=== PATIENT | female | born 1975 | race Caucasian/White ===

== ENCOUNTER 2017-12-16 17:39 | Emergency (ER) | payer OTHER ==
[~2017-12-16] VITALS: Ht 165.1 cm; Wt 58.5 kg
[~2017-12-16 17:39] MED LIST: HYDROXYCHLOROQ200 MG; PREDNISOLONE5 MG; RELAGESIC 5001 EACH PO; SULFAMETHOXAZOL1 TA3 PO; SYNTHROID50 MCG; TOPROL XL25 MG; ULTRACET PO
[2017-12-16] MEDS ORDERED: NIFE60TA3 (17:51)
[2017-12-16] MEDS ORDERED: PRENATAL TABLE1 EAC2 (17:52)
== END 2017-12-17 00:30 | disposition home or self-care (01) ==
LOC: ER 17:39
DX: B34.9 Viral infection, unspecified (principal)

== ENCOUNTER 2018-04-21 10:22 | Outpatient (CLI) | payer OTHER ==
[~2018-04-21 10:22] MED LIST changes: +NIFE60TA3; +PRENATAL TABLE1 EAC2
== END 2018-04-21 22:40 | disposition home or self-care (01) ==
LOC: OBS/DEL 10:22
DX: O60.02 Preterm labor without delivery, second trimester (principal); Z34.82 Encounter for supervision of other normal pregnancy, second trimester

== ENCOUNTER 2018-07-08 17:47 | Outpatient (CLI) | payer OTHER ==
[2018-07-08] MEDS ORDERED: ASA81 MG PO (18:27)
== END 2018-07-09 17:59 | disposition home or self-care (01) ==
LOC: OBS/DEL 17:47
DX: O60.03 Preterm labor without delivery, third trimester (principal); Z34.83 Encounter for supervision of other normal pregnancy, third trimester